=== PATIENT | male | born 2000 | race Caucasian/White ===

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

== ENCOUNTER 2024-12-18 08:25 | Emergency (ER) | payer OTHER, SELFPAY ==
--- NOTE | ~2024-12-18 | XR_ITS ---
4 views of the mandible Clinical history of left jaw injury, laceration FINDINGS: No acute fracture or dislocation evident. Osseous alignment appears anatomic. Joint spaces appear intact. Paranasal sinuses are clear. No soft tissue abnormality evident. IMPRESSION: No definite abnormality seen. Reviewed, dictated and finalized at [facility].
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
[2024-12-18 08:39] VITALS: BP 130/64; PULSE 70; RESP 16; TEMP 37; O2SAT 97
[2024-12-18] MEDS: TETANUS,DIPHTHERIA,AC PERTUSSIS ADULT (0.5 ML) BOOSTRIX IM (09:23)
== END 2024-12-18 09:29 | disposition home or self-care (01) ==
PROVIDERS: Emergency Provider Nurse Practitioner Family; PCP Family Medicine
DX: S01.81XA Laceration without foreign body of other part of head, initial encounter (principal); V84.0XXA Driver of special agricultural vehicle injured in traffic accident, initial encounter; S09.90XA Unspecified injury of head, initial encounter; S00.83XA Contusion of other part of head, initial encounter; Z23 Encounter for immunization; F17.290 Nicotine dependence, other tobacco product, uncomplicated
CPT/HCPCS: 12011; 70110; 90471; 90715; 99213; G0463